=== PATIENT | female | born 1935 | race Caucasian/White ===

== ENCOUNTER 2020-06-01 03:46 | Inpatient (IN) | payer MEDICARE, OTHER ==
[2020-06-01] MEDS ORDERED: GLUCAGON,HUMAN RECOMB 1 MG INJ SUBCUT PRN (05:14)
[2020-06-01] MEDS ORDERED: ONDANSETRON 4 MG TAB.RAPDIS PO PRN (05:14)
[2020-06-01] MEDS ORDERED: DEXTROSE 50%-WATER 25 GM/50 ML DISP.SYRIN IV PRN ×2 (05:14)
[2020-06-01] MEDS ORDERED: ONDANSETRON HCL INJ/PF 4 MG/2 ML SDV IV PRN (05:14)
[2020-06-01] MEDS ORDERED: OXYCODONE-ACETAMINOPHEN 5-325 MG TABLET PO PRN ×2 (05:14→13:54)
[2020-06-01] MEDS ORDERED: DEXTROSE 40% GEL 15 GM TUBE PO PRN ×2 (05:14)
--- NOTE | 2020-06-01 05:30 | PDOC H&P ---
History of Present Illness Admission Date/PCP: 06/01/20 03:46 KOSTA AVILA DO History of Present Illness: NISA JACKSON is a 84 year old female with past medical history significant for T2DM, PUD, breast cancer status post chemo no cancer free who presents ED at [facility] after a mechanical fall while walking her dog which resulted in a right hip fracture of her femur. Patient was initially planned for surgery at [facility] however there OR reportedly had some sterilization problems and they do not know when the OR will be working again. They requested patient be transferred here and spoke with Dr. Walsh in orthopedics who agreed to perform hip surgery either today or . Per transfer center, patient's vitals and labs there are stable and she has only required Tylenol for pain management. Her only home medications are Metformin and Januvia. She also takes PPI for history of peptic ulcer disease and severe GI bleed. Past Medical History Cardiac Medical History: Denies: Coronary Artery Disease, Myocardial Infarction, Hypertension Pulmonary Medical History: Denies: Asthma, Bronchitis, Chronic Obstructive Pulmonary Disease (COPD), Pneumonia Neurological Medical History: Denies: Seizures Endocrine Medical History: Reports: Diabetes Mellitus Type 2 Malignancy Medical History: Reports: Breast Cancer Musculoskeltal Medical History: Reports: Arthritis Psychiatric Medical History: Denies: Depression Hematology: Denies: Anemia Past Surgical History Past Surgical History: Reports: Appendectomy, Cardiac Catheterization - 1999, Cholecystectomy, Orthopedic Surgery - Rotator cuff repair 2006, Tonsillectomy Denies: Pacemaker Social History Information Source: Patient, Emergency Med Personnel, Outside Facility Records Lives with: Family Smoking Status: Never Smoker Frequency of Alcohol Use: None Hx Recreational Drug Use: No Drugs: None - Advance Directive Resuscitation Status: Do Not Resuscitate Surrogate healthcare decision maker:: Admitting diagnosis: Right hip fracture All aspects of code status discussed with patient/POA including cardioversion, chest compressions, and intubation and the patient/POA indicated they wish to be DNR/DNI MPOA is designated as: Waqar Cardona Time spent: Greater than 16 minutes Family History Family History: Reviewed & Not Pertinent, Malignancy Parental Family History Reviewed: Yes Children Family History Reviewed: Yes Sibling(s) Family History Reviewed.: Yes Medication/Allergy Home Medications: Vitamin D PO BID 06/19/11 Furosemide [Lasix 20 mg Tablet] 20 mg PO QAM #30 tablet 09/04/12 Potassium Chloride [Klor-Con 10 Meq Tablet.sa] 10 meq PO DAILY #30 tablet.sa 09/04/12 Glipizide [Glocotrol 5 Mg Tablet] 5 mg PO DAILY #30 tablet 07/01/13 Metformin HCl [Glucophage] 500 mg PO BID #60 tablet 07/01/13 Allergies/Adverse Reactions: No Known Allergies Allergy (Verified 08/05/11 11:54) Review of Systems All systems: reviewed and no additional remarkable complaints except as stated - Per HPI otherwise negative Physical Exam Vital Signs: Temp Pulse Resp BP Pulse Ox 98.2 F 84 18 156/60 H 99 06/01/20 04:07 06/01/20 04:07 06/01/20 04:07 06/01/20 04:07 06/01/20 04:07 Intake & Output 05/30/20 05/31/20 06/01/20 06:59 06:59 06:59 Weight 69.5 kg Exam: General appearance: PRESENT: no acute distress, well-developed, well-nourished, elderly white female, obese with BMI 30.9 Head exam: PRESENT: atraumatic, normocephalic Eye exam: PRESENT: conjunctiva pink. ABSENT: scleral icterus Mouth exam: PRESENT: moist Respiratory exam: PRESENT: clear to auscultation juno. ABSENT: rales, rhonchi, wheezes Cardiovascular exam: PRESENT: RRR. ABSENT: diastolic murmur, rubs, systolic murmur GI/Abdominal exam: PRESENT: normal bowel sounds, soft. ABSENT: distended, guarding, mass, organolmegaly, rebound, tenderness Neurological exam: PRESENT: alert, awake, oriented to person, oriented to place, oriented to time, oriented to situation Psychiatric exam: PRESENT: appropriate affect, normal mood Skin exam: PRESENT: dry, intact, warm Musculoskeletal: Right hip with exquisite tenderness along lateral aspect of femur Assessment and Plan - Diagnosis (1) Closed right hip fracture Qualifiers: Encounter type: initial encounter Qualified Code(s): S72.001A - Fracture of unspecified part of neck of right femur, initial encounter for closed fracture Is this a current diagnosis for this admission?: Yes Plan: Mechanical fall onto her right hip while walking her dog, transferred from [facility] due to OR not being functional Imaging at [facility] not available, discussed with transfer center and orthopedics prior to transfer Check CBC and INR Dr. Walsh in orthopedic surgery consulted by [facility] and transfer center, planning surgery either 06/01 or 06/02, n.p.o. DVT prophylaxis PT/OT (2) Fall from standing Qualifiers: Encounter type: initial encounter Qualified Code(s): W19.XXXA - Unspecified fall, initial encounter Is this a current diagnosis for this admission?: Yes Plan: As above (3) T2DM (type 2 diabetes mellitus) Qualifiers: Diabetes mellitus alf insulin use: without terminal carman use Diabetes mellitus complication status: without complication Qualified Code(s): E11.9 - Type 2 diabetes mellitus without complications Is this a current diagnosis for this admission?: Yes Plan: T2DM -accucheks, sliding scale insulin -long acting insulin indicated for HgA1C of 10 or greater -diet counseling -outpt FU with PCP (4) History of peptic ulcer disease Is this a current diagnosis for this admission?: Yes Plan: Continue PPI (5) History of breast cancer Is this a current diagnosis for this admission?: Yes Plan: "Cancer free" per patient - Time Time Spent with patient: 35 or more minutes Medications reviewed and adjusted accordingly: Yes Anticipated Discharge Disposition: Long-Term Facility Anticipated Discharge Timeframe: within 72 hours - Inpatient Certification Based on my medical assessment, after consideration of the patient's comorbidities, presenting symptoms, or acuity I expect that the services needed warrant INPATIENT care.: Yes I certify that my determination is in accordance with my understanding of Medicare's requirements for reasonable and necessary INPATIENT services [42 CFR 412.3e].: Yes Medical Necessity: Significant Comorbidiites Make Outpatient Treatment Too Risky, Need Close Monitoring Due to Risk of Patient Decompensation, Need for Surgery, Risk of Complication if Not Cared For in Hospital, Risk of Diagnosis Which Will Require Inpatient Eval/Care/Monitoring
[2020-06-01] MEDS: PANTOPRAZOLE SODIUM 40 MG TABLET.DR PO SCH (05:59)
[2020-06-01] MEDS: ACETAMINOPHEN 325 MG TABLET PO PRN (06:12)
[2020-06-01 07:15] LABS: INTERNATIONAL RATION (INR) 1.15; PROTHROMBIN TIME 14.9 SEC (11.4-15.4)
[2020-06-01 07:19] LABS: ABSOLUTE EOSINOPHILS # (AUTO) 0.1 10^3/uL (0.0-0.6); ABSOLUTE LYMPHOCYTES (AUTO) 0.7 10^3/uL (0.5-4.7); ABSOLUTE MONOCYTES (AUTO) 0.5 10^3/uL (0.1-1.4); ABSOLUTE NEUT (AUTO) 5.1 10^3/uL (1.7-8.2); BASOPHILS % (AUTO) 0.5 % (0-2); HEMATOCRIT 27.3 % (36.0-47.0); HEMOGLOBIN 9.1 g/dL (12.0-15.5); LYMPHOCYTES % (AUTO) 10.9 % (13-45); MEAN CORPUSCULAR HEMOGLOBIN 25.4 pg (27.0-33.4); MEAN CORPUSCULAR HGB CONC 33.2 g/dL (32.0-36.0); MEAN CORPUSCULAR VOLUME 76 fl (80-97); MONOCYTES % (AUTO) 8.3 % (3-13); PLATELET COUNT 128 10^3/uL (150-450); RED BLOOD COUNT 3.58 10^6/uL (3.72-5.28); RED CELL DISTRIBUTION WIDTH 20.9 % (11.5-14.0); SEGMENTED NEUTROPHILS % (AUTO) 79.3 % (42-78); TOTAL CELLS COUNTED % (AUTO) 100 %; WHITE BLOOD COUNT 6.4 10^3/uL (4.0-10.5)
[2020-06-01 07:27] LABS: BLOOD UREA NITROGEN 13 mg/dL (7-20); CALCIUM 8.5 mg/dL (8.4-10.2); CHLORIDE 104 mmol/L (98-107); GLUCOSE 155 mg/dL (75-110)
[2020-06-01 07:33] LABS: ANION GAP 5 (5-19); CARBON DIOXIDE 25 mmol/L (22-30)
[2020-06-01] MEDS: INSULIN LISPRO 100 UNIT/ML 3 ML VIAL SUBCUT SCH ×4 (08:17→21:48)
[2020-06-01] MEDS: DOCUSATE SODIUM 100 MG CAPSULE PO SCH (10:05)
[2020-06-01] MEDS: ENOXAPARIN SODIUM INJ 40 MG/0.4 ML DISP.SYRIN SUBCUT SCH (10:05)
--- NOTE | 2020-06-01 10:06 | RADIOLOGY REPORT (SQ) ---
EXAM DESCRIPTION: HIP RIGHT AP/LATERAL IMAGES COMPLETED DATE/TIME: 06/01/2020 9:51 am REASON FOR STUDY: fracture COMPARISON: None. NUMBER OF VIEWS: Two views. TECHNIQUE: AP pelvis and additional frog legview of the right hip. LIMITATIONS: None. FINDINGS: MINERALIZATION: Normal. RIGHT HIP: Mildly displaced intratrochanteric fracture. The femoral head remains well seated within the acetabulum. LEFT HIP: No fracture or dislocation. No worrisome bone lesions. Limited views. PUBIS AND ISCHIUM: No fracture. PELVIS: No fracture. SACRUM: No fracture or dislocation. No worrisome bone lesions. LOWER LUMBAR SPINE: No fracture or dislocation. No worrisome bone lesions. No significant disc disea se. SOFT TISSUES: No findings. OTHER: No other significant finding. IMPRESSION: Mildly displaced intratrochanteric fracture of the right proximal femur. TECHNICAL DOCUMENTATION: JOB ID: [id number] 2010 [email or web address]- All Rights Reserved Reading location - IP/workstation name: [email or web address]
--- NOTE | 2020-06-01 12:18 | PDOC CONSULTATION ---
Consultation Consult Date: 06/01/20 Provider Consulted: NAVEEN MCINTYRE JR History of Present Illness Admission Date/PCP: 06/01/20 03:46 KOSTA AVILA DO History of Present Illness: NISA JACKSON is a 84 year old female with a past medical history that is complicated including breast cancer, PUD, type 2 diabetes, severe GI bleed, and history of multiple falls. The patient fell of her dog a few days ago resulting in a right hip fracture. She has a basicervical hip fracture and presented to [facility] where they had planned for fixation. Unfortunately due to some sterilization problems at their facility, they transferred her to [facility] for definitive management. Patient reports severe right hip pain 8 out of 10, aching in nature, worse with any attempted motion, improved with rest and pain medication. She is tolerating Tylenol well at this time. Denies any other associated injuries or head injury. She denies headache or loss of consciousness at the time of her fall. Pain is localized to the right hip, only mild radiation distally. No knee pain. Past Medical History Cardiac Medical History: Denies: Coronary Artery Disease, Myocardial Infarction, Hypertension Pulmonary Medical History: Denies: Asthma, Bronchitis, Chronic Obstructive Pulmonary Disease (COPD), Pneumonia Neurological Medical History: Denies: Seizures Endocrine Medical History: Reports: Diabetes Mellitus Type 2 Malignancy Medical History: Reports: Breast Cancer Musculoskeltal Medical History: Reports: Arthritis Psychiatric Medical History: Denies: Depression Hematology: Denies: Anemia Past Surgical History Past Surgical History: Reports: Appendectomy, Cardiac Catheterization - 1999, Cholecystectomy, Orthopedic Surgery - Rotator cuff repair 2006, Tonsillectomy Denies: Pacemaker Social History Lives with: Family Smoking Status: Never Smoker Frequency of Alcohol Use: None Hx Recreational Drug Use: No Drugs: None - Advance Directive Resuscitation Status: Do Not Resuscitate Family History Family History: Reviewed & Not Pertinent, Malignancy Parental Family History Reviewed: No Children Family History Reviewed: NA Sibling(s) Family History Reviewed.: NA Medication/Allergy Home Medications: Ferrous Sulfate [Feosol 325 mg Tablet] 325 mg PO DAILY 06/01/20 Metformin HCl 1,000 mg PO BID 06/01/20 Multivitamin [Multiple Vitamins] 1 tab PO DAILY 06/01/20 Sitagliptin Phosphate [Januvia 50 mg Tablet] 100 mg PO DAILY 06/01/20 Allergies/Adverse Reactions: No Known Allergies Allergy (Verified 06/01/20 08:26) Review of Systems Review of Systems: Constitutional: ABSENT: anorexia, chills, night sweats Cardiovascular: ABSENT: chest pain Respiratory: ABSENT: dyspnea Gastrointestinal: ABSENT: vomiting Genitourinary: ABSENT: dysuria Integumentary: ABSENT: rash Neurological: ABSENT: confusion, memory loss, numbness Psychiatric: ABSENT: hallucinations Hematologic/Lymphatic: ABSENT: easy bleeding Physical Exam Vital Signs: Temp Pulse Resp BP Pulse Ox 98.3 F 83 17 156/62 H 97 06/01/20 07:32 06/01/20 07:32 06/01/20 07:32 06/01/20 07:32 06/01/20 07:32 Intake & Output 05/31/20 06/01/20 06/02/20 06:59 06:59 06:59 Output Total 200 Balance -200 Weight 69.5 kg Physical Exam: General appearance: PRESENT: no acute distress, cooperative, obese Head exam: PRESENT: atraumatic, normocephalic Eye exam: PRESENT: EOMI Ear exam: PRESENT: normal external ear exam Mouth exam: PRESENT: neck supple Neck exam: ABSENT: tracheal deviation Respiratory exam: PRESENT: symmetrical, unlabored. ABSENT: accessory muscle use, wheezes Pulses: PRESENT: normal radial pulses, normal dorsalis pedis pulse Vascular exam: PRESENT: normal capillary refill GI/Abdominal exam: ABSENT: distended, firm Extremities exam: PRESENT: full ROM of bilateral shoulders, elbows wrists, knees, hips and ankles without pain Musculoskeletal exam: PRESENT: full ROM, normal inspection of all 4 extremities aside from that noted below. Neurological exam: PRESENT: alert, awake, oriented to person, oriented to place, oriented to time Psychiatric exam: PRESENT: appropriate affect. ABSENT: agitated Focused psych exam: ABSENT: catatonic Skin exam: PRESENT: intact. ABSENT: dry All as above aside from that noted in the HPI and the following: Right lower extremity -Pulses 2+ distally -Compartments soft -Sensation grossly intact to L3-4-5 S1 -Motor grossly intact to EHL TA gastroc and quad Leg shortened externally rotated. Results Laboratory Results: 06/01/20 06:53 06/01/20 06:53 06/01/20 06/01/20 06:53 06:53 WBC 6.4 RBC 3.58 L Hgb 9.1 L Hct 27.3 L MCV 76 L MCH 25.4 L MCHC 33.2 RDW 20.9 H Plt Count 128 L Seg Neutrophils % 79.3 H Sodium 133.5 L Potassium 4.0 Chloride 104 Carbon Dioxide 25 Anion Gap 5 BUN 13 Creatinine 0.58 Est GFR ( Amer) > 60 Glucose 155 H Calcium 8.5 Impressions: Hip/Pelvis X-Ray 06/01/20 00:00 IMPRESSION: Mildly displaced intratrochanteric fracture of the right proximal femur. Assessment & Plan - Diagnosis (1) Closed right hip fracture Qualifiers: Encounter type: initial encounter Qualified Code(s): S72.001A - Fracture of unspecified part of neck of right femur, initial encounter for closed fracture Is this a current diagnosis for this admission?: Yes Plan: The patient has been n.p.o. There is some potential that we may be able to proceed with operative intervention this afternoon. I will contact the operating room for potential time. Continue to hold chemical DVT prophylaxis Bedrest We will need to have anesthesia evaluate the patient for any other preoperative clearance needs. Continue multimodal pain management to avoid excessive narcotics. Ancef on-call for preoperative delivery.
[2020-06-01] MEDS ORDERED: CEFAZOLIN 2 GM/D5W RTU 2 GM/50 ML RTUPB IV SCH (14:00)
[2020-06-01] MEDS: CEFAZOLIN SODIUM 2 GM in DEXTROSE 5%-WATER 100 ML IV SCH ×2 (14:48→21:15)
--- NOTE | 2020-06-01 16:41 | Progress Note ---
Provider Note Provider Note: Patient admitted with a right femoral neck fracture. Her pain is controlled at this time with oral pain medication. She was n.p.o. in anticipation of possible surgery today, but it looks like is not going to happen until tomorrow. We will order a diet and make her n.p.o. at midnight.
[2020-06-02] MEDS: PANTOPRAZOLE SODIUM 40 MG TABLET.DR PO SCH (05:14)
[2020-06-02] MEDS: CEFAZOLIN SODIUM 2 GM in DEXTROSE 5%-WATER 100 ML IV SCH ×3 (05:16→21:45)
[2020-06-02 06:38] LABS: ABSOLUTE BASOPHILS # (AUTO) 0.1 10^3/uL (0.0-0.2); ABSOLUTE EOSINOPHILS # (AUTO) 0.2 10^3/uL (0.0-0.6); ABSOLUTE LYMPHOCYTES (AUTO) 0.9 10^3/uL (0.5-4.7); ABSOLUTE MONOCYTES (AUTO) 0.6 10^3/uL (0.1-1.4); ABSOLUTE NEUT (AUTO) 3.9 10^3/uL (1.7-8.2); BASOPHILS % (AUTO) 0.9 % (0-2); EOSINOPHILS % (AUTO) 3.5 % (0-6); HEMATOCRIT 26.4 % (36.0-47.0); LYMPHOCYTES % (AUTO) 16.2 % (13-45); MEAN CORPUSCULAR HGB CONC 33.9 g/dL (32.0-36.0); MEAN CORPUSCULAR VOLUME 77 fl (80-97); MONOCYTES % (AUTO) 10.6 % (3-13); PLATELET COUNT 131 10^3/uL (150-450); RED BLOOD COUNT 3.45 10^6/uL (3.72-5.28); RED CELL DISTRIBUTION WIDTH 20.3 % (11.5-14.0); SEGMENTED NEUTROPHILS % (AUTO) 68.8 % (42-78); TOTAL CELLS COUNTED % (AUTO) 100 %; WHITE BLOOD COUNT 5.6 10^3/uL (4.0-10.5)
[2020-06-02 06:57] LABS: BLOOD UREA NITROGEN 9 mg/dL (7-20); CALCIUM 8.5 mg/dL (8.4-10.2); CARBON DIOXIDE 27 mmol/L (22-30); GLUCOSE 156 mg/dL (75-110); PHOSPHORUS 2.7 mg/dL (2.5-4.5); POTASSIUM 4.2 mmol/L (3.6-5.0)
[2020-06-02 07:02] LABS: CHLORIDE 104 mmol/L (98-107)
[2020-06-02 07:07] LABS: ANION GAP 2 (5-19)
[2020-06-02] MEDS: INSULIN LISPRO 100 UNIT/ML 3 ML VIAL SUBCUT SCH ×4 (07:32→21:46)
--- NOTE | 2020-06-02 09:49 | RADIOLOGY REPORT (SQ) ---
EXAM DESCRIPTION: CHEST SINGLE VIEW IMAGES COMPLETED DATE/TIME: 06/02/2020 9:23 am REASON FOR STUDY: preop COMPARISON: 09/02/2012 EXAM PARAMETERS: NUMBER OF VIEWS: One view. TECHNIQUE: Single frontal radiographic view of the chest acquired. RADIATION DOSE: NA LIMITATIONS: None. FINDINGS: LUNGS AND PLEURA: No opacities, masses or pneumothorax. No pleural effusion. MEDIASTINUM AND HILAR STRUCTURES: No masses. Contour normal. HEART AND VASCULAR STRUCTURES: Stable in appearance. BONES: No acute findings. HARDWARE: There are surgical clips in the right axilla. OTHER: No other significant finding. IMPRESSION: NO ACUTE RADIOGRAPHIC FINDING IN THE CHEST. TECHNICAL DOCUMENTATION: JOB ID: [id number] 2010 [employer]- All Rights Reserved Reading location - IP/workstation name: [email or web address]
[2020-06-02] MEDS ORDERED: SUCCINYLCHOLINE CHLORIDE INJ 200 MG/10 ML VIAL ONE (10:36)
[2020-06-02] MEDS ORDERED: ONDANSETRON HCL INJ/PF 4 MG/2 ML SDV ONE (10:36)
[2020-06-02] MEDS ORDERED: PHENYLEPHRINE HCL INJ/PF 10 MG/1 ML SDV ONE (10:36)
[2020-06-02] MEDS ORDERED: DEXAMETHASONE SOD PHOSPHATE INJ 4 MG/1 ML VIAL ONE (10:36)
[2020-06-02] MEDS ORDERED: METOCLOPRAMIDE HCL INJ/PF 10 MG/2 ML SDV ONE (10:36)
[2020-06-02] MEDS: DOCUSATE SODIUM 100 MG CAPSULE PO SCH (11:41)
[2020-06-02] MEDS: ENOXAPARIN SODIUM INJ 40 MG/0.4 ML DISP.SYRIN SUBCUT SCH (11:41)
[2020-06-02] MEDS ORDERED: CEFAZOLIN INJ 1 GM VIAL ONE (13:00)
[2020-06-02] MEDS ORDERED: FENTANYL CITRATE INJ/PF 100 MCG/2 ML AMPUL ONE ×2 (13:11→15:05)
[2020-06-02] MEDS ORDERED: PROPOFOL INJ 200 MG/20 ML VIAL IV ONE (13:11)
[2020-06-02] MEDS ORDERED: LIDOCAINE 2% INJ-PF (20 MG/ML) 10 ML AMPUL ONE (13:11)
[2020-06-02] MEDS ORDERED: EPHEDRINE SULFATE INJ 50 MG/1 ML AMPULE ONE (13:11)
[2020-06-02] MEDS ORDERED: MIDAZOLAM 2 MG/2 ML INJ ONE (13:11)
--- NOTE | 2020-06-02 14:52 | PDOC PROGRESS REPORT ---
Subjective Date:: 06/02/20 Subjective:: Patient seen and examined this morning. She is eager for surgery and the abilit y to begin moving again. Reason For Visit: RIGHT HIP FRACTURE, T2DM Physical Exam Vital Signs: Temp Pulse Resp BP Pulse Ox 98.6 F 87 17 144/76 H 92 06/02/20 11:10 06/02/20 11:10 06/02/20 11:10 06/02/20 11:10 06/02/20 11:10 Intake & Output 06/01/20 06/02/20 06/03/20 06:59 06:59 06:59 Intake Total 480 Output Total 200 1675 700 Balance -200 -1195 -700 Weight 69.5 kg 67.6 kg Physical Exam: No acute distress, alert and orient x3 Right lower extremity -Pulses 2+ distally -Compartments soft -Sensation grossly intact to L3-4-5 S1 -Motor grossly intact to EHL TA gastroc and quad -Leg shortened externally rotated. Skin intact. Results Laboratory Results: 06/02/20 05:11 06/02/20 05:11 06/02/20 06/02/20 05:11 05:11 WBC 5.6 RBC 3.45 L Hgb 9.0 L Hct 26.4 L MCV 77 L MCH 26.0 L MCHC 33.9 RDW 20.3 H Plt Count 131 L Seg Neutrophils % 68.8 Sodium 133.3 L Potassium 4.2 Chloride 104 Carbon Dioxide 27 Anion Gap 2 L BUN 9 Creatinine 0.58 Est GFR ( Amer) > 60 Glucose 156 H Calcium 8.5 Phosphorus 2.7 Magnesium 1.5 L Impressions: Hip/Pelvis X-Ray 06/01/20 00:00 IMPRESSION: Mildly displaced intratrochanteric fracture of the right proximal femur. Chest X-Ray 06/02/20 00:00 IMPRESSION: NO ACUTE RADIOGRAPHIC FINDING IN THE CHEST. Assessment & Plan - Diagnosis (1) Closed right hip fracture Qualifiers: Encounter type: initial encounter Qualified Code(s): S72.001A - Fracture of unspecified part of neck of right femur, initial encounter for closed fracture Is this a current diagnosis for this admission?: Yes Plan: -Patient is bedrest n.p.o. and has 2 g Ancef on-call to the OR. Plan for operative intervention latest afternoon Continue multimodal pain management to that time. After surgery the plan will be for the followin doses of Ancef postoperatively q 8 hours to complete 24 hours perioperatively -Weightbearing as tolerated, no precautions, encourage out of bed CHELSEY for ADL training - PT/OT -aspirin 325 daily for DVT prophylaxis for 6 weeks -multimodal pain management to avoid excessive narcotics, including gabapentin, tramadol, Toradol, acetaminophen. -Dressing changes as needed -May shower with the dressing intact, if it starts to come off she should not get the incision wet. -Follow-up with Dr. Emiliano Adrian, orthopedic surgeon at [facility] for surgery, in 10 days. Call for an appointment. . [address], [place] [address] - Time Time Spent with patient: Less than 15 minutes
[2020-06-02] MEDS ORDERED: ONDANSETRON HCL INJ/PF 4 MG/2 ML SDV IV PRN (15:07)
[2020-06-02] MEDS ORDERED: DIPHENHYDRAMINE HCL 50 MG/ML VIAL IV PRN (15:07)
[2020-06-02] MEDS ORDERED: FENTANYL CITRATE INJ/PF 100 MCG/2 ML AMPUL IV PRN ×3 (15:07)
[2020-06-02] MEDS ORDERED: OXYCODONE-ACETAMINOPHEN 5-325 MG TABLET PO PRN ×2 (15:07)
[2020-06-02] MEDS ORDERED: PROMETHAZINE HCL INJ 25 MG/1 ML VIAL IV PRN ×2 (15:07)
[2020-06-02] MEDS ORDERED: MEPERIDINE HCL/PF INJ 25 MG/1 ML DISP.SYRIN IV PRN (15:07)
--- NOTE | 2020-06-02 15:07 | Operative Report ---
Operative Report DATE OF SURGERY: 06/02/20 PREOPERATIVE DIAGNOSIS: Right intertrochanteric hip fracture POSTOPERATIVE DIAGNOSIS: Right intertrochanteric hip fracture OPERATION: Right hip short cephalomedullary nail SURGEON: NAVEEN MCINTYRE JR ANESTHESIA: GA COMPLICATIONS: None ESTIMATED BLOOD LOSS: 150 cc PROCEDURE: The patient was brought in operating suite and provided with general anesthesia. They were then transferred to the traction table and placed supine. They are then appropriately positioned. 2 g Ancef was provided preoperatively. After appropriate positioning fluoroscopy was used to assist in obtaining fracture reduction in conjunction with manipulating the fracture table. After near- anatomic reduction the right lower extremity was then prepped and draped in standard sterile fashion. An appropriate timeout was performed and the site was marked and planned with the assistance of fluoroscopy. A proximal incision was made proximal to the greater trochanter which was gently carried through the abductor fascia. A guidewire was then inserted and evaluated under fluoroscopy to be centered in the femoral canal as well as at the tip of the greater trochanter. After adequate positioning of the guidewire, a reamer was used over the guidewire in order to open the canal for insertion of the short nail. A 11 mm x 180 mm x 125 degree was selected. This was then introduced over the guidewire and impacted. The patient's canal was more narrow than anticipated and we had difficulty sending the nail to the appropriate depth. The nail was then removed and we proceeded to ream up to 12.5 mm. After appropriate reaming we reposition the nail which easily achieved the appropriate depth at this point. After this a trocar was placed for the femoral screw through the guide. In accordance with the positioning of the trocar, an incision was made laterally and then carried through the deep fascia to allow passage of the trocar to the bone. The trocar was then gently approximated to bone followed by introduction of a guidewire. This guidewire was then advanced into the femoral neck. AP and lateral views were checked to ensure appropriate positioning of the guidewire and the femoral neck. This was then advanced to near center center of the femoral head. After doing this the pin was measured to a 85. We then removed the inner liner of the trocar and inserted a reamer at the appropriate depth. We reamed under fluoroscopy to ensure appropriate positioning of the reamer and appropriate depth measurement. I was able to ream even further to approximately 90 mm without becoming too close subchondrally. After this the 90 mm hip screw was selected and advanced over the guidewire again carefully checking on fluoroscopy to ensure that we advanced to the appropriate depth. Upon doing so, we then compressed the fracture through the hip screw. A proximal locking screw was placed in the superior nail. We then turned our attention to the distal interlocking screw. A trocar was advanced through the guide and an incision was made with the appropriate position and carried again through the deep fascia. This trocar was then introduced to the bone. Under fluoroscopy the distal interlock was drilled and the depth was measured. The appropriate length screw was then inserted and ensured to be in good position on both AP and lateral views. After this the guides were then removed and final fluoroscopy was taken. The wounds were then copiously irrigated with sterile saline solution. 2-0 Monocryl was used to close the fascia followed by inverted interrupted 2-0 Monocryl in the subcutaneous tissue followed by jonna superficially. Sterile dressings were then placed and the patient was then awakened from anesthesia and transferred to PACU in stable condition.
[2020-06-02] MEDS ORDERED: MORPHINE SULFATE 10 MG/ML INJ IV PRN (15:08)
--- NOTE | 2020-06-02 15:22 | RADIOLOGY REPORT (SQ) ---
EXAM DESCRIPTION: HIP RIGHT AP/LATERAL; NO CHG FLUORO IMAGES COMPLETED DATE/TIME: 06/02/2020 3:15 pm REASON FOR STUDY: ORIF RIGHT HIP ASSISTED WITH FLUORO IN OR COMPARISON: None. FLUOROSCOPY TIME: 1.1 minutes 4 images saved to PACS. TECHNIQUE: Intra-operative images acquired during surgical procedure to evaluate progress. NUMBER OF IMAGES: 4 LIMITATIONS: None. FINDINGS: Yamil and dynamic hip compression screw fixation of intertrochanteric femoral neck fracture. IMPRESSION: IMAGE(S) OBTAINED DURING PROCEDURE. COMMENT: Quality ID 145: Final reports for procedures using fluoroscopy that document radiation exp osure indices, or exposure time and number of fluorographic images (if radiation exposure indices are not available) Please consult full operative report of the attending physician for description of the procedure. TECHNICAL DOCUMENTATION: JOB ID: [id number] 2010 [employer]- All Rights Reserved Reading location - IP/workstation name: [email or web address]
--- NOTE | 2020-06-02 15:22 | RADIOLOGY REPORT (SQ) ---
EXAM DESCRIPTION: HIP RIGHT AP/LATERAL; NO CHG FLUORO IMAGES COMPLETED DATE/TIME: 06/02/2020 3:15 pm REASON FOR STUDY: ORIF RIGHT HIP ASSISTED WITH FLUORO IN OR COMPARISON: None. FLUOROSCOPY TIME: 1.1 minutes 4 images saved to PACS. TECHNIQUE: Intra-operative images acquired during surgical procedure to evaluate progress. NUMBER OF IMAGES: 4 LIMITATIONS: None. FINDINGS: Yamil and dynamic hip compression screw fixation of intertrochanteric femoral neck fracture. IMPRESSION: IMAGE(S) OBTAINED DURING PROCEDURE. COMMENT: Quality ID 145: Final reports for procedures using fluoroscopy that document radiation exp osure indices, or exposure time and number of fluorographic images (if radiation exposure indices are not available) Please consult full operative report of the attending physician for description of the procedure. TECHNICAL DOCUMENTATION: JOB ID: [id number] 2010 [employer]- All Rights Reserved Reading location - IP/workstation name: [email or web address]
--- NOTE | 2020-06-02 17:31 | PDOC PROGRESS REPORT ---
Subjective Date:: 06/02/20 Subjective:: No adverse events overnight. No new complaints. Vital signs been stable. Pain has been well controlled. Patient is n.p.o. awaiting surgery. Reason For Visit: RIGHT HIP FRACTURE, T2DM Physical Exam Vital Signs: Temp Pulse Resp BP Pulse Ox 98.4 F 98 20 121/54 L 94 06/02/20 15:50 06/02/20 15:50 06/02/20 15:50 06/02/20 15:50 06/02/20 15:50 Intake & Output 06/01/20 06/02/20 06/03/20 06:59 06:59 06:59 Intake Total 480 1300 Output Total 200 1675 1600 Balance -200 -1195 -300 Weight 69.5 kg 67.6 kg General appearance: PRESENT: no acute distress, cooperative, obese Respiratory exam: PRESENT: clear to auscultation juno, symmetrical, unlabored. ABSENT: accessory muscle use, chest wall tenderness, crackles, prolonged expiratory phas, rhonchi, tachypnea, wheezes Cardiovascular exam: PRESENT: RRR, +S1, +S2 Pulses: PRESENT: normal carotid pulses Vascular exam: PRESENT: normal capillary refill GI/Abdominal exam: PRESENT: normal bowel sounds, soft. ABSENT: distended, guarding, rebound, tenderness Extremities exam: ABSENT: clubbing, pedal edema Musculoskeletal exam: PRESENT: deformity - Right hip Neurological exam: PRESENT: alert, awake, oriented to person, oriented to place, oriented to situation Psychiatric exam: PRESENT: appropriate affect, normal mood Skin exam: PRESENT: dry, warm Results Laboratory Results: 06/02/20 05:11 06/02/20 05:11 06/02/20 06/02/20 05:11 05:11 WBC 5.6 RBC 3.45 L Hgb 9.0 L Hct 26.4 L MCV 77 L MCH 26.0 L MCHC 33.9 RDW 20.3 H Plt Count 131 L Seg Neutrophils % 68.8 Sodium 133.3 L Potassium 4.2 Chloride 104 Carbon Dioxide 27 Anion Gap 2 L BUN 9 Creatinine 0.58 Est GFR ( Amer) > 60 Glucose 156 H Calcium 8.5 Phosphorus 2.7 Magnesium 1.5 L Impressions: Chest X-Ray 06/02/20 00:00 IMPRESSION: NO ACUTE RADIOGRAPHIC FINDING IN THE CHEST. Fluoroscopy 06/02/20 00:00 IMPRESSION: IMAGE(S) OBTAINED DURING PROCEDURE. Hip/Pelvis X-Ray 06/02/20 00:00 IMPRESSION: IMAGE(S) OBTAINED DURING PROCEDURE. 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 Activity and weightbearing recommendations postoperatively from orthopedics. DVT prophylaxis. We will follow-up physical therapy recommendations after they evaluate her postoperatively. - Time Time Spent with patient: 15-24 minutes Anticipated Discharge Disposition: [facility] Facility Anticipated Discharge Timeframe: within 72 hours
--- NOTE | 2020-06-02 23:55 | EKG REPORT ---
SEVERITY:- ABNORMAL ECG - SINUS RHYTHM ATRIAL PREMATURE COMPLEX INCOMPLETE RIGHT BUNDLE BRANCH BLOCK : Confirmed by: Liz Pandey 02-Jun-2020 23:54:07
[2020-06-03 05:27] LABS: ABSOLUTE LYMPHOCYTES (AUTO) 0.8 10^3/uL (0.5-4.7); ABSOLUTE MONOCYTES (AUTO) 0.7 10^3/uL (0.1-1.4); ABSOLUTE NEUT (AUTO) 4.8 10^3/uL (1.7-8.2); BASOPHILS % (AUTO) 0.2 % (0-2); EOSINOPHILS % (AUTO) 0.2 % (0-6); HEMATOCRIT 23.4 % (36.0-47.0); LYMPHOCYTES % (AUTO) 12.1 % (13-45); MEAN CORPUSCULAR HEMOGLOBIN 25.7 pg (27.0-33.4); MEAN CORPUSCULAR HGB CONC 33.7 g/dL (32.0-36.0); MEAN CORPUSCULAR VOLUME 76 fl (80-97); MONOCYTES % (AUTO) 10.5 % (3-13); PLATELET COUNT 117 10^3/uL (150-450); RED BLOOD COUNT 3.08 10^6/uL (3.72-5.28); RED CELL DISTRIBUTION WIDTH 20.4 % (11.5-14.0); TOTAL CELLS COUNTED % (AUTO) 100 %; WHITE BLOOD COUNT 6.3 10^3/uL (4.0-10.5)
[2020-06-03] MEDS: CEFAZOLIN SODIUM 2 GM in DEXTROSE 5%-WATER 100 ML IV SCH ×3 (05:28→21:10)
[2020-06-03] MEDS: PANTOPRAZOLE SODIUM 40 MG TABLET.DR PO SCH (05:28)
[2020-06-03 05:31] LABS: HEMOGLOBIN 7.9 g/dL (12.0-15.5)
[2020-06-03 05:47] LABS: BLOOD UREA NITROGEN 11 mg/dL (7-20); CALCIUM 8.5 mg/dL (8.4-10.2); GLUCOSE 170 mg/dL (75-110); POTASSIUM 4.2 mmol/L (3.6-5.0)
[2020-06-03 05:53] LABS: CARBON DIOXIDE 27 mmol/L (22-30); CHLORIDE 104 mmol/L (98-107)
[2020-06-03 05:56] LABS: ANION GAP 4 (5-19)
[2020-06-03] MEDS: INSULIN LISPRO 100 UNIT/ML 3 ML VIAL SUBCUT SCH ×4 (07:59→21:09)
[2020-06-03] MEDS: ENOXAPARIN SODIUM INJ 40 MG/0.4 ML DISP.SYRIN SUBCUT SCH (10:22)
[2020-06-03] MEDS: DOCUSATE SODIUM 100 MG CAPSULE PO SCH (10:29)
--- NOTE | 2020-06-03 12:38 | PDOC PROGRESS REPORT ---
Subjective Date:: 06/03/20 Subjective:: Patient is doing well today. No acute events overnight. No new complaints. Pa in much improved from surgery. Reason For Visit: RIGHT HIP FRACTURE, T2DM Physical Exam Vital Signs: Temp Pulse Resp BP Pulse Ox 97.6 F 89 18 136/54 H 98 06/03/20 08:47 06/03/20 07:34 06/03/20 07:34 06/03/20 07:34 06/03/20 07:34 Intake & Output 06/02/20 06/03/20 06/04/20 06:59 06:59 06:59 Intake Total 480 1960 Output Total 1675 1800 Balance -1195 160 Weight 67.6 kg 103.7 kg Physical Exam: NAD, AOx3 Right lower extremity -Pulses 2+ distally -Compartments soft -Sensation grossly intact to L3-4-5 S1 -Motor grossly intact to EHL TA gastroc and quad -Dressing clean dry and intact Results Laboratory Results: 06/03/20 04:46 06/03/20 04:46 06/03/20 06/03/20 04:46 04:46 WBC 6.3 RBC 3.08 L Hgb 7.9 L Hct 23.4 L MCV 76 L MCH 25.7 L MCHC 33.7 RDW 20.4 H Plt Count 117 L Seg Neutrophils % 77.0 Sodium 134.5 L Potassium 4.2 Chloride 104 Carbon Dioxide 27 Anion Gap 4 L BUN 11 Creatinine 0.60 Est GFR ( Amer) > 60 Glucose 170 H Calcium 8.5 Impressions: Chest X-Ray 06/02/20 00:00 IMPRESSION: NO ACUTE RADIOGRAPHIC FINDING IN THE CHEST. Fluoroscopy 06/02/20 00:00 IMPRESSION: IMAGE(S) OBTAINED DURING PROCEDURE. Hip/Pelvis X-Ray 06/02/20 00:00 IMPRESSION: IMAGE(S) OBTAINED DURING PROCEDURE. Assessment & Plan - Diagnosis (1) Closed right hip fracture Qualifiers: Encounter type: initial encounter Qualified Code(s): S72.001A - Fracture of unspecified part of neck of right femur, initial encounter for closed fracture Is this a current diagnosis for this admission?: Yes Plan: - 2 doses of Ancef postoperatively q 8 hours to complete 24 hours perioperatively -Weightbearing as tolerated, no precautions, encourage out of bed CHELSEY for ADL training - PT/OT -aspirin 325 daily for DVT prophylaxis for 6 weeks -multimodal pain management to avoid excessive narcotics, including gabapentin, tramadol, Toradol, acetaminophen. -Dressing should not be removed for 7 to 10 days until seen in the office -May shower with the dressing intact, if it starts to come off she should not get the incision wet. -Follow-up with Dr. Emiliano Adrian, orthopedic surgeon at [facility] for surgery, in 10 days. Call for an appointment. . [address], [place] [address] - Time Time Spent with patient: Less than 15 minutes
[2020-06-03] MEDS: ACETAMINOPHEN 325 MG TABLET PO PRN (13:14)
[2020-06-03] MEDS: MULTIVITAMIN TABLET PO SCH (13:14)
--- NOTE | 2020-06-03 14:20 | PDOC PROGRESS REPORT ---
Subjective Date:: 06/03/20 Subjective:: The patient is an 84-year-old female with a past medical history significant for type 2 diabetes mellitus, PUD, breast cancer status post chemo (now cancer free), arthritis, and morbid obesity who was admitted 06/01/2020 with right hip fracture now status post cephalomedullary nail by Dr. Adrian on 06/02/2020. Patient was seen on afternoon rounds with her son present. She is found resting in bed, comfortably, on supplemental oxygen by nasal cannula at 2 L/min. She is on home O2. She was placed on room air and continue to maintain oxygen saturations in the mid 90s without increased work of breathing or tachypnea. Patient reports that her pain is well controlled; in fact, she remains pain-free after working with physical therapy today. She has no complaints or concerns at this time and is hopeful to discharge to home soon as possible. I did discuss with the patient and her son risks and benefits of discharged home versus rehab. They are adamant that they discharged directly to home. I advised that reasonable expectation would be that she would be ambulatory 5-10 steps with a front wheel walker and standby assistance at time of discharge to home; goal would be sometime over the weekend. They were further advised that should she not meet this goal, revisiting SNF placement on Saturday would occur as she could not remain inpatient at the hospital for her entire rehab period. Both patient and son were understandable and agreeable with plan and recommendations. She denies fever, chest pain, cough, dyspnea, abd pain, nausea and vomiting. They have no questions or concerns at this time. No concerns per nursing. Reason For Visit: RIGHT HIP FRACTURE, T2DM Physical Exam Vital Signs: Temp Pulse Resp BP Pulse Ox 97.6 F 89 18 136/54 H 98 06/03/20 08:47 06/03/20 07:34 06/03/20 07:34 06/03/20 07:34 06/03/20 07:34 Intake & Output 06/02/20 06/03/20 06/04/20 06:59 06:59 06:59 Intake Total 480 1960 Output Total 1675 1800 Balance -1195 160 Weight 67.6 kg 103.7 kg General appearance: PRESENT: no acute distress, cooperative - pleasant, morbidly obese, well-developed, well-nourished Head exam: PRESENT: atraumatic, normocephalic Eye exam: PRESENT: conjunctiva pink, EOMI, PERRLA. ABSENT: scleral icterus Mouth exam: PRESENT: moist, tongue midline Respiratory exam: PRESENT: clear to auscultation juno, symmetrical, unlabored, other - room air. ABSENT: rales, rhonchi, wheezes Cardiovascular exam: PRESENT: RRR. ABSENT: diastolic murmur, rubs, systolic murmur Pulses: PRESENT: normal dorsalis pedis pul Vascular exam: PRESENT: normal capillary refill Extremities exam: PRESENT: tenderness - Right hip. ABSENT: calf tenderness, clubbing, full ROM - right; limited due to pain, pedal edema Neurological exam: PRESENT: alert, awake, oriented to person, oriented to place, oriented to time, oriented to situation, CN II-XII grossly intact. ABSENT: motor sensory deficit Psychiatric exam: PRESENT: appropriate affect, normal mood. ABSENT: homicidal ideation, suicidal ideation Skin exam: PRESENT: dry, warm. ABSENT: cyanosis, rash Results Laboratory Results: 06/03/20 04:46 06/03/20 04:46 06/02/20 06/03/20 06/03/20 09:10 04:46 04:46 WBC 6.3 RBC 3.08 L Hgb 7.9 L Hct 23.4 L MCV 76 L MCH 25.7 L MCHC 33.7 RDW 20.4 H Plt Count 117 L Seg Neutrophils % 77.0 Sodium 134.5 L Potassium 4.2 Chloride 104 Carbon Dioxide 27 Anion Gap 4 L BUN 11 Creatinine 0.60 Est GFR ( Amer) > 60 Glucose 170 H Calcium 8.5 Blood Type O POSITIVE Antibody Screen POSITIVE Impressions: Chest X-Ray 06/02/20 00:00 IMPRESSION: NO ACUTE RADIOGRAPHIC FINDING IN THE CHEST. Fluoroscopy 06/02/20 00:00 IMPRESSION: IMAGE(S) OBTAINED DURING PROCEDURE. Hip/Pelvis X-Ray 06/02/20 00:00 IMPRESSION: IMAGE(S) OBTAINED DURING PROCEDURE. Assessment and Plan - Diagnosis (1) Closed right hip fracture Qualifiers: Encounter type: initial encounter Qualified Code(s): S72.001A - Fracture of unspecified part of neck of right femur, initial encounter for closed fracture Is this a current diagnosis for this admission?: Yes Plan: s/p cephalomedullary nail by Dr. Adrian 06/02/2020 Weightbearing as tolerated. Analgesics as needed. As per orthopedics, full dose aspirin for DVT prophylaxis. Discharge planning consulted for home health services, walker, and bedside commode. 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 Diabetes mellitus complication status: without complication Qualified Code(s): E11.9 - Type 2 diabetes mellitus without complications Is this a current diagnosis for this admission?: Yes Plan: T2DM -accucheks, sliding scale insulin -diet counseling -outpt FU with PCP (3) History of peptic ulcer disease Is this a current diagnosis for this admission?: Yes Plan: Continue PPI (5) History of breast cancer Is this a current diagnosis for this admission?: Yes Plan: "Cancer free" per patient (6) Anemia Qualifiers: Anemia type: unspecified type Qualified Code(s): D64.9 - Anemia, unspecified Is this a current diagnosis for this admission?: Yes Plan: Hgb 9.1 on arrival; trended down to 7.9 following surgery Will check anemia panel with AM lab work. Patient has been Type&Crossed; does have "warm antibody" and so at risk for reaction. She is currently asymptomatic and hemodynamically stable' will hold on lucia sfusion for now. Continue home dose ferrous sulfate supplementation. Follow up CBC. - Time Time Spent with patient: 25-34 minutes Medications reviewed and adjusted accordingly: Yes Anticipated Discharge Disposition: Home with Home Health Anticipated Discharge Timeframe: within 72 hours
[2020-06-04 05:05] LABS: ABSOLUTE EOSINOPHILS # (AUTO) 0.2 10^3/uL (0.0-0.6); ABSOLUTE MONOCYTES (AUTO) 0.7 10^3/uL (0.1-1.4); ABSOLUTE NEUT (AUTO) 4.5 10^3/uL (1.7-8.2); ABSOLUTE RETICS # 0.063 10^6/uL (0.028-0.122); BASOPHILS % (AUTO) 0.5 % (0-2); EOSINOPHILS % (AUTO) 3.6 % (0-6); HEMATOCRIT 24.8 % (36.0-47.0); HEMOGLOBIN 8.1 g/dL (12.0-15.5); MEAN CORPUSCULAR HEMOGLOBIN 25.2 pg (27.0-33.4); MEAN CORPUSCULAR HGB CONC 32.8 g/dL (32.0-36.0); MEAN CORPUSCULAR VOLUME 77 fl (80-97); MONOCYTES % (AUTO) 11.1 % (3-13); PLATELET COUNT 140 10^3/uL (150-450); RED BLOOD COUNT 3.24 10^6/uL (3.72-5.28); RED CELL DISTRIBUTION WIDTH 20.8 % (11.5-14.0); RETICULOCYTE COUNT (AUTO) 1.96 % (0.66-2.85); SEGMENTED NEUTROPHILS % (AUTO) 69.8 % (42-78); TOTAL CELLS COUNTED % (AUTO) 100 %; WHITE BLOOD COUNT 6.5 10^3/uL (4.0-10.5)
[2020-06-04 05:23] LABS: BLOOD UREA NITROGEN 12 mg/dL (7-20); CALCIUM 8.3 mg/dL (8.4-10.2); GLUCOSE 155 mg/dL (75-110); IRON(TIBC) 29.6 ug/dL (37-170); POTASSIUM 3.8 mmol/L (3.6-5.0)
[2020-06-04] MEDS: PANTOPRAZOLE SODIUM 40 MG TABLET.DR PO SCH (05:23)
[2020-06-04] MEDS: CEFAZOLIN SODIUM 2 GM in DEXTROSE 5%-WATER 100 ML IV SCH ×3 (05:24→22:29)
[2020-06-04 05:28] LABS: CARBON DIOXIDE 26 mmol/L (22-30); CHLORIDE 104 mmol/L (98-107)
[2020-06-04 06:41] LABS: ANION GAP 3 (5-19)
[2020-06-04 07:15] LABS: FOLATE > 20.00 ng/mL (>2.76)
[2020-06-04] MEDS: INSULIN LISPRO 100 UNIT/ML 3 ML VIAL SUBCUT SCH ×4 (07:32→22:29)
[2020-06-04] MEDS: MULTIVITAMIN TABLET PO SCH (09:55)
[2020-06-04] MEDS: DOCUSATE SODIUM 100 MG CAPSULE PO SCH (09:56)
[2020-06-04] MEDS: ENOXAPARIN SODIUM INJ 40 MG/0.4 ML DISP.SYRIN SUBCUT SCH (09:57)
[2020-06-04] MEDS ORDERED: FERROUS SULFATE 325 MG TABLET PO SCH (10:00)
[2020-06-04] MEDS ORDERED: (PENDING PHARMACY ID) (Multivitamin [Multiple Vitamins] 1 EACH Tablet) PO SCH (10:00)
--- NOTE | 2020-06-04 10:53 | PDOC PROGRESS REPORT ---
Subjective Date:: 06/04/20 Subjective:: Patient is resting in bed. She has worked with physical therapy already this mo rning and this appears to have exhausted her. Her biggest complaint is that she has not had a bowel movement during this entire hospitalization and normally she has a bowel movement daily. Reason For Visit: RIGHT HIP FRACTURE, T2DM Physical Exam Vital Signs: Temp Pulse Resp BP Pulse Ox 97.9 F 94 18 143/59 H 89 L 06/04/20 07:38 06/04/20 07:38 06/04/20 07:38 06/04/20 07:38 06/04/20 07:38 Intake & Output 06/03/20 06/04/20 06/05/20 06:59 06:59 06:59 Intake Total 1960 520 Output Total 1800 Balance 160 520 Weight 103.7 kg 65.7 kg General appearance: PRESENT: no acute distress, cooperative, well-developed Head exam: PRESENT: atraumatic, normocephalic Eye exam: PRESENT: conjunctiva pale, EOMI. ABSENT: scleral icterus Ear exam: PRESENT: normal external ear exam. ABSENT: bleeding, drainage Mouth exam: PRESENT: moist, tongue midline Neck exam: ABSENT: carotid bruit, JVD, lymphadenopathy Respiratory exam: PRESENT: clear to auscultation juno, symmetrical, unlabored. ABSENT: accessory muscle use, rales, rhonchi, tachypnea, wheezes Cardiovascular exam: PRESENT: RRR, +S1, +S2. ABSENT: bradycardia, diastolic murmur, irregular rhythm, systolic murmur, tachycardia GI/Abdominal exam: PRESENT: normal bowel sounds, soft. ABSENT: distended, guarding, tenderness Rectal exam: PRESENT: deferred Extremities exam: ABSENT: pedal edema Musculoskeletal exam: PRESENT: ambulatory - Limited. Slowly increasing activity. Still with difficulty ambulating. Neurological exam: PRESENT: alert, awake, oriented to person, oriented to place, oriented to situation, CN II-XII grossly intact. ABSENT: altered Psychiatric exam: PRESENT: appropriate affect. ABSENT: agitated, anxious Focused psych exam: ABSENT: delusional, paranoid, restlessness Skin exam: PRESENT: dry, pallor, warm Results Laboratory Results: 06/04/20 04:22 06/04/20 04:22 06/02/20 06/04/20 06/04/20 09:10 04:22 04:22 WBC 6.5 RBC 3.24 L Hgb 8.1 L Hct 24.8 L MCV 77 L MCH 25.2 L MCHC 32.8 RDW 20.8 H Plt Count 140 L Seg Neutrophils % 69.8 Retic Count (auto) 1.96 Sodium 133.0 L Potassium 3.8 Chloride 104 Carbon Dioxide 26 Anion Gap 3 L BUN 12 Creatinine 0.57 Est GFR ( Amer) > 60 Glucose 155 H Calcium 8.3 L Iron 29.6 L TIBC 341 % Saturation 9 Ferritin 17.90 Vitamin B12 341.0 Folate > 20.00 Blood Type O POSITIVE Antibody Screen POSITIVE Impressions: Chest X-Ray 06/02/20 00:00 IMPRESSION: NO ACUTE RADIOGRAPHIC FINDING IN THE CHEST. Fluoroscopy 06/02/20 00:00 IMPRESSION: IMAGE(S) OBTAINED DURING PROCEDURE. Hip/Pelvis X-Ray 06/02/20 00:00 IMPRESSION: IMAGE(S) OBTAINED DURING PROCEDURE. Assessment and Plan - Diagnosis (1) Closed right hip fracture Qualifiers: Encounter type: initial encounter Qualified Code(s): S72.001A - Fracture of unspecified part of neck of right femur, initial encounter for closed fracture Is this a current diagnosis for this admission?: Yes (2) T2DM (type 2 diabetes mellitus) Qualifiers: Diabetes mellitus mcfp insulin use: without intermediate frame tender use Diabetes mellitus complication status: without complication Qualified Code(s): E11.9 - Type 2 diabetes mellitus without complications Is this a current diagnosis for this admission?: Yes (3) Anemia Qualifiers: Anemia type: iron deficiency Iron deficiency anemia type: inadequate dietary iron intake Qualified Code(s): D50.8 - Other iron deficiency anemias Is this a current diagnosis for this admission?: Yes (4) History of peptic ulcer disease Is this a current diagnosis for this admission?: Yes (5) History of breast cancer Is this a current diagnosis for this admission?: Yes (6) Constipation Qualifiers: Constipation type: unspecified constipation type Qualified Code(s): K59.00 - Constipation, unspecified Is this a current diagnosis for this admission?: Yes - Plan Summary Summary: (1) Closed right hip fracture (2) T2DM (type 2 diabetes mellitus) (3) Anemia (4) History of peptic ulcer disease (5) History of breast cancer (6) Constipation 06/04/2020 Closed right hip fracture-successful surgical intervention several days ago. Physical therapy continues to work with the patient. Diabetes mellitus type 2-resume home medication regimen and continue sliding scale coverage Iron deficiency anemia-initiate iron supplement therapy. Continue multivitamin and B12 supplement. History of peptic ulcer disease-continue pantoprazole Constipation-the patient has not had a BM since she was admitted. Normally she moves her bowels every day. I have added Colace and senna twice daily with bisacodyl available if needed. Continues to work with physical therapy. Unfortunately the patient's son refuses residential facility placement. We will arrange for home health with home physical therapy. Hopeful for discharge within 48 to 72 hours. - Time Time Spent with patient: 15-24 minutes Medications reviewed and adjusted accordingly: Yes Anticipated Discharge Disposition: Home with Home Health Anticipated Discharge Timeframe: within 72 hours
[2020-06-04] MEDS ORDERED: BISACODYL 5 MG TABEC PO ONE (10:54)
[2020-06-04] MEDS: ACETAMINOPHEN 325 MG TABLET PO PRN (10:54)
[2020-06-04] MEDS: METFORMIN HCL 500 MG TABLET PO SCH (18:09)
[2020-06-04] MEDS: SENNOSIDES/DOCUSATE 8.6-50 MG 1 EACH TABLET PO SCH (18:09)
[2020-06-04] MEDS: FERROUS SULFATE 325 MG TABLET PO SCH (18:10)
[2020-06-05] MEDS: PANTOPRAZOLE SODIUM 40 MG TABLET.DR PO SCH (05:41)
[2020-06-05] MEDS: CEFAZOLIN SODIUM 2 GM in DEXTROSE 5%-WATER 100 ML IV SCH ×2 (05:41→14:16)
[2020-06-05] MEDS ORDERED: CYANOCOBALAMIN (VITAMIN B-12) 1,000 MCG TABLET PO SCH (10:00)
[2020-06-05] MEDS ORDERED: SITAGLIPTIN PHOSPHATE 50 MG TABLET PO SCH (10:00)
[2020-06-05] MEDS ORDERED: FERROUS SULFATE 325 MG TABLET PO SCH (10:00)
[2020-06-05] MEDS: METFORMIN HCL 500 MG TABLET PO SCH (10:42)
[2020-06-05] MEDS: SENNOSIDES/DOCUSATE 8.6-50 MG 1 EACH TABLET PO SCH (10:42)
[2020-06-05] MEDS: MULTIVITAMIN TABLET PO SCH (10:43)
[2020-06-05] MEDS: DOCUSATE SODIUM 100 MG CAPSULE PO SCH (10:43)
[2020-06-05] MEDS: FERROUS SULFATE 325 MG TABLET PO SCH (10:43)
[2020-06-05] MEDS: INSULIN LISPRO 100 UNIT/ML 3 ML VIAL SUBCUT SCH ×2 (10:44→12:15)
[2020-06-05] MEDS: ENOXAPARIN SODIUM INJ 40 MG/0.4 ML DISP.SYRIN SUBCUT SCH (10:45)
[2020-06-05 13:42] VITALS: BP 130/50
--- NOTE | 2020-06-05 14:08 | PDOC DISCHARGE SUMMARY ---
Impression - Admit/DC Date/PCP Admission Date/Primary Care Provider: 06/01/20 03:46 KOSTA AVILA DO Discharge Date: 06/05/20 - Discharge Diagnosis (1) Closed right hip fracture Is this a current diagnosis for this admission?: Yes (2) T2DM (type 2 diabetes mellitus) Is this a current diagnosis for this admission?: Yes (3) Anemia Is this a current diagnosis for this admission?: Yes (4) History of peptic ulcer disease Is this a current diagnosis for this admission?: Yes (5) History of breast cancer Is this a current diagnosis for this admission?: Yes (6) Constipation Is this a current diagnosis for this admission?: Yes - Assessment Summary: (1) Closed right hip fracture (2) T2DM (type 2 diabetes mellitus) (3) Anemia (4) History of peptic ulcer disease (5) History of breast cancer (6) Constipation 06/04/2020 Closed right hip fracture-successful surgical intervention several days ago. Physical therapy continues to work with the patient. Diabetes mellitus type 2-resume home medication regimen and continue sliding scale coverage Iron deficiency anemia-initiate iron supplement therapy. Continue multivitamin and B12 supplement. History of peptic ulcer disease-continue pantoprazole Constipation-the patient has not had a BM since she was admitted. Normally she moves her bowels every day. I have added Colace and senna twice daily with bisacodyl available if needed. Continues to work with physical therapy. Unfortunately the patient's son refuses long-term facility placement. We will arrange for home health with home physical therapy. Hopeful for discharge within 48 to 72 hours. 06/05/2020 Hip fracture-the patient did much better with physical therapy today and is anxious to go home. She is safe for discharge at this time. Awaiting DME including front wheel walker and bedside commode Diabetes mellitus type 2-glucose improved when the patient returned to Januvia and Metformin. Continue home medication and diabetic diet Anemia-continue iron supplement and B12 complex. Constipation-resolved - Additional Information Resuscitation Status: Do Not Resuscitate Referrals: KOSTA AVILA DO [Primary Care Provider] - Home Medications: Ferrous Sulfate [Feosol 325 mg Tablet] 325 mg PO DAILY 06/01/20 Metformin HCl 1,000 mg PO BID 06/01/20 Multivitamin [Multiple Vitamins] 1 tab PO DAILY 06/01/20 Sitagliptin Phosphate [Januvia 50 mg Tablet] 100 mg PO DAILY 06/01/20 Cyanocobalamin (Vitamin B-12) [Vitamin B-12 1000 mcg Tablet] 1,000 mcg PO DAILY tablet 06/05/20 Docusate Sodium [Colace 100 mg Capsule] 100 mg PO DAILY capsule 06/05/20 Sennosides/Docusate 8.6-50 mg [Senna Plus Tablet] 1 each PO BID tablet 06/05/20 History of Present Illiness History of Present Illness: NISA JACKSON is a 84 year old female with past medical history significant for T2DM, PUD, breast cancer status post chemo no cancer free who presents ED at [facility] after a mechanical fall while walking her dog which resulted in a right hip fracture of her femur. Patient was initially planned for surgery at [facility] however there OR reportedly had some sterilization problems and they do not know when the OR will be working again. They requested patient be transferred here and spoke with Dr. Walsh in orthopedics who agreed to perform hip surgery either today or . Per transfer center, patient's vitals and labs there are stable and she has only required Tylenol for pain management. Her only home medications are Metformin and Januvia. She also takes PPI for history of peptic ulcer disease and severe GI bleed. Hospital Course Hospital Course: See above Physical Exam Vital Signs: Temp Pulse Resp BP Pulse Ox 98.3 F 84 16 130/50 H 92 06/05/20 12:00 06/05/20 12:00 06/05/20 12:00 06/05/20 12:06/05/20 12:00 Intake & Output 06/04/20 06/05/20 06/06/20 06:59 06:59 06:59 Intake Total 520 1560 Balance 520 1560 Weight 65.7 kg 65.6 kg General appearance: PRESENT: no acute distress Respiratory exam: PRESENT: clear to auscultation juno, symmetrical, unlabored. ABSENT: rales, rhonchi, tachypnea, wheezes Cardiovascular exam: PRESENT: RRR, +S1, +S2. ABSENT: bradycardia, diastolic murmur, irregular rhythm, systolic murmur, tachycardia GI/Abdominal exam: PRESENT: normal bowel sounds, soft. ABSENT: tenderness Neurological exam: PRESENT: alert, awake, oriented to person, oriented to place, oriented to time, oriented to situation, CN II-XII grossly intact. ABSENT: altered Psychiatric exam: PRESENT: appropriate affect. ABSENT: agitated, anxious Results Laboratory Results: WBC 6.5 10^3/uL (4.0-10.5) 06/04/20 04:22 RBC 3.24 10^6/uL (3.72-5.28) L 06/04/20 04:22 Hgb 8.1 g/dL (12.0-15.5) L 06/04/20 04:22 Hct 24.8 % (36.0-47.0) L 06/04/20 04:22 MCV 77 fl (80-97) L 06/04/20 04:22 MCH 25.2 pg (27.0-33.4) L 06/04/20 04:22 MCHC 32.8 g/dL (32.0-36.0) 06/04/20 04:22 RDW 20.8 % (11.5-14.0) H 06/04/20 04:22 Plt Count 140 10^3/uL (150-450) L 06/04/20 04:22 Lymph % (Auto) 15.0 % (13-45) 06/04/20 04:22 [place] % (Auto) 11.1 % (3-13) 06/04/20 04:22 Eos % (Auto) 3.6 % (0-6) 06/04/20 04:22 Baso % (Auto) 0.5 % (0-2) 06/04/20 04:22 Reticulocyte # 0.063 10^6/uL (0.028-0.122) 06/04/20 04:22 Absolute Neuts (auto) 4.5 10^3/uL (1.7-8.2) 06/04/20 04:22 Absolute Lymphs (auto) 1.0 10^3/uL (0.5-4.7) 06/04/20 04:22 Absolute Monos (auto) 0.7 10^3/uL (0.1-1.4) 06/04/20 04:22 Absolute Eos (auto) 0.2 10^3/uL (0.0-0.6) 06/04/20 04:22 Absolute Basos (auto) 0.0 10^3/uL (0.0-0.2) 06/04/20 04:22 Seg Neutrophils % 69.8 % (42-78) 06/04/20 04:22 Retic Count (auto) 1.96 % (0.66-2.85) 06/04/20 04:22 PT 14.9 SEC (11.4-15.4) 06/01/20 06:53 INR 1.15 06/01/20 06:53 Sodium 133.0 mmol/L (137-145) L 06/04/20 04:22 Potassium 3.8 mmol/L (3.6-5.0) 06/04/20 04:22 Chloride 104 mmol/L (98-107) 06/04/20 04:22 Carbon Dioxide 26 mmol/L (22-30) 06/04/20 04:22 Anion Gap 3 (5-19) L 06/04/20 04:22 BUN 12 mg/dL (7-20) 06/04/20 04:22 Creatinine 0.57 mg/dL (0.52-1.25) 06/04/20 04:22 Est GFR ( Amer) > 60 (>60) 06/04/20 04:22 Est GFR (MDRD) Non-Af > 60 (>60) 06/04/20 04:22 Glucose 155 mg/dL (75-110) H 06/04/20 04:22 POC Glucose 155 mg/dL (70-110) H 06/05/20 11:38 Calcium 8.3 mg/dL (8.4-10.2) L 06/04/20 04:22 Phosphorus 2.7 mg/dL (2.5-4.5) 06/02/20 05:11 Magnesium 1.5 mg/dL (1.6-2.3) L 06/02/20 05:11 Iron 29.6 ug/dL (37-170) L 06/04/20 04:22 TIBC 341 ug/dL (250-450) 06/04/20 04:22 % Saturation 9 % 06/04/20 04:22 Ferritin 17.90 ng/mL (11.1-264.0) 06/04/20 04:22 Vitamin B12 341.0 pg/mL (239-931) 06/04/20 04:22 Folate > 20.00 ng/mL (>2.76) 06/04/20 04:22 Blood Type O POSITIVE 06/02/20 09:10 Antibody Screen POSITIVE 06/02/20 09:10 Antibody Identification Warm Auto Antibody 06/02/20 09:10 Direct Antiglob Test POSITIVE 06/02/20 09:10 Impressions: Hip/Pelvis X-Ray 06/01/20 00:00 IMPRESSION: Mildly displaced intratrochanteric fracture of the right proximal femur. Chest X-Ray 06/02/20 00:00 IMPRESSION: NO ACUTE RADIOGRAPHIC FINDING IN THE CHEST. Fluoroscopy 06/02/20 00:00 IMPRESSION: IMAGE(S) OBTAINED DURING PROCEDURE. Hip/Pelvis X-Ray 06/02/20 00:00 IMPRESSION: IMAGE(S) OBTAINED DURING PROCEDURE. Plan Health Concerns: Hip fracture in elderly patient. Will need home health with physical therapy. Plan of Treatment: Resume home medications. 325 mg aspirin tablet daily for 6 weeks for postoperative prophylaxis. No further antibiotics needed. Home health with physical therapy. Goals: Complete recovery from hip fracture Time Spent: Greater than 30 Minutes Stroke Is this a Stroke Patient?: No Acute Heart Failure Is this a Heart Failure Patient?: No
== END 2020-06-05 15:29 | disposition home health service (06) | DRG 482 ==
LOC: 4N 03:46
PROVIDERS: ADMIT Internal Medicine; ATTEND Hospitalist
PROC: 0QS636Z Reposition Right Upper Femur with Intramedullary Internal Fixation Device, Percutaneous Approach (ICD-10-PCS; principal; 2020-06-02 11:15)
DX: S72.001A Fracture of unspecified part of neck of right femur, initial encounter for closed fracture (principal); E11.9 Type 2 diabetes mellitus without complications; K59.00 Constipation, unspecified; W01.0XXA Fall on same level from slipping, tripping and stumbling without subsequent striking against object, initial encounter; Y93.K1 Activity, walking an animal; D50.9 Iron deficiency anemia, unspecified; E66.01 Morbid (severe) obesity due to excess calories; Z68.30 Body mass index [BMI] 30.0-30.9, adult; Z87.11 Personal history of peptic ulcer disease; Z85.3 Personal history of malignant neoplasm of breast; Z66 Do not resuscitate; Z79.899 Other long term (current) drug therapy; Z79.84 Long term (current) use of oral hypoglycemic drugs; Z92.21 Personal history of antineoplastic chemotherapy; Z91.81 History of falling
CPT/HCPCS: 01230; 36415; 71045; 80048; 82607; 82728; 82746; 82962; 83540; 83550; 83735; 84100; 85025; 85045; 85610; 86850; 86870; 86880; 86900; 86901; 93005; 93010; 94799; C1713; C1769; J0330; J0690; J1100; J1650; J1815; J2250; J2370; J2405; J2704; J2765; J3010; J3490; J7060